=== PATIENT | female | born 1985 | race Caucasian/White ===

== ENCOUNTER 2019-06-06 16:14 | Emergency (ER) | payer BC ==
[2019-06-06] MEDS ORDERED: TETANUS & DIPHTHERIA TOX,ADULT 0.5 ML VIAL ONE (16:50)
--- NOTE | 2019-06-06 17:09 | ER ---
Nurse's Notes [facility] Name: Esha Oakley Age: 34 yrs Sex: Female : 1985 Arrival Date: 06/06/2019 Time: 16:15 Bed 27 Private MD: Diagnosis: Cellulitis of right upper limb Presentation: 06/06 16:25 Presenting complaint: Patient states: right elbow injury after falling on it Thursday, sv c/o pain and swelling. Transition of care: patient was not received from another setting of care. Onset of symptoms was June 04, 2019. Risk Assessment: Do you want to hurt yourself or someone else? Patient reports no desire to harm self or others. Care prior to arrival: None. 16:25 Method Of Arrival: Ambulatory sv 16:25 Acuity: EM 3 sv 16:59 Initial Sepsis Screen: Does the patient meet any 2 criteria? No. Patient's initial rv sepsis screen is negative. Does the patient have a suspected source of infection? No. Patient's initial sepsis screen is negative. Triage Assessment: 17:00 Injury Description: elbow hit something. rv Historical: - Allergies: 16:25 No Known Allergies; sv - PMHx: 16:25 None; sv - PSHx: 16:25 None; sv - Immunization history:: Flu vaccine is up to date. - Social history:: Smoking status: Patient uses tobacco products, smokes one-half pack cigarettes per day, Patient/guardian denies using alcohol, street drugs, The patient lives with family. - Ebola Screening: : No symptoms or risks identified at this time. - Family history:: not pertinent. Screenin:57 Abuse screen: Denies threats or abuse. Denies injuries from another. Nutritional rv screening: No deficits noted. Tuberculosis screening: No symptoms or risk factors identified. Fall Risk None identified. Assessment: 16:56 General: Appears in no apparent distress. comfortable, Behavior is calm, cooperative. rv Pain: Complains of pain in right elbow. Neuro: Level of Consciousness is awake, alert, obeys commands, Oriented to person, place, time, situation. Derm: Wound noted right elbow Wound is abrasion. Musculoskeletal: Swelling present in right elbow. Vital Signs: 16:26 BP 140 / 97; Pulse 88; Resp 16; Temp 99; Pulse Ox 97% ; Weight 58.97 kg; Height 5 ft. 3 sv in. (160.02 cm); Pain 5/10; 17:26 BP 127 / 88; Pulse 81; Resp 18; Pulse Ox 98% on R/A; rv 16:26 Body Mass Index 23.03 (58.97 kg, 160.02 cm) sv ED Course: 16:15 Patient arrived in ED. as 16:25 Triage completed. sv 16:26 Arm band placed on. sv 16:41 Nilson Ni MD is Attending Physician. ma 16:42 Nikolas Arnett, MARCELLUS is Primary Nurse. rv 16:58 Patient has correct armband on for positive identification. Pulse ox on. rv 16:58 No provider procedures requiring assistance completed. Patient did not have IV access rv during this emergency room visit. Wound care: to abrasion, located on right elbow ice pack applied. Patient tolerated well. 17:29 Elbow Right 3 View XRAY In Process Unspecified. 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 Exp: rv 11/18/2020. Lot #: [id number]. } Route: IM; Site: left deltoid; 17:28 Follow up: Response: No adverse reaction rv Outcome: 17:08 Discharge ordered by . anahi 17:26 Discharged to home ambulatory. rv 17:26 Condition: good 17:26 Discharge instructions given to patient, Instructed on discharge instructions, follow up and referral plans. medication usage, Demonstrated understanding of instructions, follow-up care, medications, wound care, Prescriptions given X 2. 18:02 Discharge ordered by . anahi 18:05 Patient left the ED. rv Signatures: Dispatcher [employer] EDMS Selina Lima, RN RN Fiorella Rodriges as Nilson Ni MD MD ma2 Vicente, Ronaldo, MARCELLUS RN rv Corrections: (The following items were deleted from the chart) 16:26 16:26 BP 140 / 97; Pulse 88bpm; Resp 16bpm; Pulse Ox 97%; Temp 99F; 58.97 kg; Height 5 sv ft. 3 in.; BMI: 23.0; Pain 0/10; sv
--- NOTE | 2019-06-06 17:09 | EDPHYS ---
Physician Documentation [facility] Name: Esha Oakley Age: 34 yrs Sex: Female : 1985 Arrival Date: 06/06/2019 Time: 16:15 Bed 27 Private MD: ED Physician Nilson Ni HPI: 06/06 17:06 This 34 yrs old Female presents to ER via Ambulatory with complaints of Elbow ma2 Injury. 17:06 The patient or guardian complains of an abrasion. Onset: The symptoms/episode ma2 began/occurred suddenly, 2 day(s) ago. Associated signs and symptoms: Pertinent positives: erythema, Pertinent negatives: decreased range of motion, numbness, swelling, tingling, warmth. Severity of symptoms: At their worst the symptoms were moderate, in the emergency department the symptoms are unchanged. The patient has not experienced similar symptoms in the past. Historical: - Allergies: 16:25 No Known Allergies; sv - PMHx: 16:25 None; sv - PSHx: 16:25 None; sv - Immunization history:: Flu vaccine is up to date. - Social history:: Smoking status: Patient uses tobacco products, smokes one-half pack cigarettes per day, Patient/guardian denies using alcohol, street drugs, The patient lives with family. - Ebola Screening: : No symptoms or risks identified at this time. - Family history:: not pertinent. ROS: 17:06 All other systems are negative. ma2 17:09 Neck: Negative for injury, pain, and swelling. ma2 Exam: 17:06 Constitutional: This is a well developed, well nourished patient who is awake, alert, ma2 and in no acute distress. Chest/axilla: Normal chest wall appearance and motion. Nontender with no deformity. No lesions are appreciated. Cardiovascular: Regular rate and rhythm with a normal S1 and S2. No gallops, murmurs, or rubs. Normal PMI, no JVD. No pulse deficits. Respiratory: Lungs have equal breath sounds bilaterally, clear to auscultation and percussion. No rales, rhonchi or wheezes noted. No increased work of breathing, no retractions or nasal flaring. Abdomen/GI: Soft, non-tender, with normal bowel sounds. No distension or tympany. No guarding or rebound. No evidence of tenderness throughout. Skin: Warm, dry with normal turgor. Normal color with no rashes, no lesions, and no evidence of cellulitis. MS/ Extremity: able to range all joints, hwever has abrasion with mild induration around, at right elbow, joint with no effusion, Pulses equal, no cyanosis. Neurovascular intact. Full, normal range of motion. Neuro: Awake and alert, GCS 15, oriented to person, place, time, and situation. Cranial nerves II-XII grossly intact. Motor strength 5/5 in all extremities. Sensory grossly intact. Cerebellar exam normal. Normal gait. Vital Signs: 16:26 BP 140 / 97; Pulse 88; Resp 16; Temp 99; Pulse Ox 97% ; Weight 58.97 kg; Height 5 ft. 3 sv in. (160.02 cm); Pain 5/10; 17:26 BP 127 / 88; Pulse 81; Resp 18; Pulse Ox 98% on R/A; rv 16:26 Body Mass Index 23.03 (58.97 kg, 160.02 cm) sv MDM: 16:41 Patient medically screened. ma2 17:06 Differential diagnosis: closed fracture, contusion, abrasion, tendonitis. Data ma2 reviewed: vital signs, nurses notes. Counseling: I had a detailed discussion with the patient and/or guardian regarding: the historical points, exam findings, and any diagnostic results supporting the discharge/admit diagnosis, the presence of at least one elevated blood pressure reading (>120/80) during this emergency department visit, the need for outpatient follow up. 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 Exp: rv 11/18/2020. Lot #: [id number]. } Route: IM; Site: left deltoid; 17:28 Follow up: Response: No adverse reaction rv Disposition: 06/06/19 18:02 Discharged to Home. Impression: Cellulitis of right upper limb. - Condition is Stable. - Discharge Instructions: Cellulitis, Adult. - Medication Reconciliation Form, Thank You Letter, Antibiotic Education, Prescription Opioid Use form. - Follow up: Private Physician; When: Tomorrow; Reason: Continuance of care. Signatures: Dispatcher [employer] Selina Baez RN RN Nilson Ni MD MD ma2 Nikolas Arnett RN RN rv Corrections: (The following items were deleted from the chart) 17:16 17:08 06/06/2019 17:08 Discharged to Home. Impression: Cellulitis and acute ma2 lymphangitis of other parts of limb. Condition is Stable. Forms are Medication Reconciliation Form, Thank You Letter, Antibiotic Education, Prescription Opioid Use. Follow up: Private Physician; When: Tomorrow; Reason: Continuance of care. ma2 18:05 18:02 06/06/2019 18:02 Discharged to Home. Impression: Cellulitis of right upper limb. rv Condition is Stable. Prescriptions for Tylenol-Codeine #3 300-30 mg Oral Tablet - take 2 tablet by ORAL route every 6 hours As needed; 30 tablet, Bactrim DS 800-160 mg Oral Tablet - take 1 tablet by ORAL route every 12 hours for 5 days; 10 tablet. and Forms are Medication Reconciliation Form, Thank You Letter, Antibiotic Education, Prescription Opioid Use. Follow up: Private Physician; When: Tomorrow; Reason: Continuance of care. ma2
--- NOTE | 2019-06-06 17:52 | RAD REPORT ---
EXAM DESCRIPTION: RAD - Elbow Right 3 View - 06/06/2019 5:27 pm CLINICAL HISTORY: Persistent elbow pain following fall COMPARISON: None. FINDINGS: No fracture is identified and no elevated posterior fat pad. There is no dislocation or pe riosteal reaction noted. No foreign body or other soft tissue abnormality. No other significant findi ng. IMPRESSION: Negative right elbow examination.
[2019-06-06 19:42] VITALS: TEMP 99
[2019-06-06 19:43] VITALS: BP 127/88; O2SAT 98
== END 2019-06-06 18:05 | disposition home or self-care (01) ==
LOC: ER 16:14
DX: L03.113 Cellulitis of right upper limb (principal); F17.210 Nicotine dependence, cigarettes, uncomplicated; Z23 Encounter for immunization
CPT/HCPCS: 90471; 90714; 99284

== ENCOUNTER → 2019-07-27 | Day surgery (SDC) | payer BC ==
[~2019-07-27] MED LIST: CEFAZOLIN/SWI 1gm 0 GM/0 ML SYR ONE; NA CHLORIDE 0.9% 250 ML ONE; Ringers Lactate 0 ML IV ONE; SCOPOLAMINE HYDROBROMIDE PATCH TD ONE
--- NOTE | 2019-07-27 12:13 | RAD REPORT ---
EXAM DESCRIPTION: US - Breast Core BX w/US Guidance - 07/27/2019 10:51 am CLINICAL HISTORY: N64.59 COMPARISON: Breast ultrasound March 12, 2018, mammogram February 10, 2018. TECHNIQUE: The patient presents for ultrasound-guided biopsy of a previously detailed 12 millimeter right breast mass 12 o'clock position abutting the chest wall. The ultrasound-guided core biopsy procedure, risks and alternatives were discussed with the patient i n detail. After answering all questions, both oral and written consent were obtained. Time out proced ure was performed. The patient had no contraindicated allergy or medication history. Patient took 81 milligram aspirin earlier in the day. Preliminary imaging identified the 12 mm mass. The anterior breast was prepped and draped in the usua l sterile fashion. From a lateral inferior approach, skin and deeper tissues were anesthetized with 1 % lidocaine. Under direct sonographic visualization a 14 gauge vacuum assisted core biopsy needle was advanced and placed at the upper lateral margin of the mass. The mass abutted and slightly flatten t he chest wall musculature limiting access to the mid and inferior portions of the mass for biopsy. Th ere were a total of four core biopsies obtained under direct sonographic guidance. The mass did appea r to have distortion in contour supporting transit of the biopsy needle through the upper or anterior portion of the mass. At the conclusion of the procedure a localization clip was placed under sonographic guidance at the l ateral margin of the mass. Post biopsy imaging showed no hematoma and mild bleeding within the breast soft tissues. This is not unexpected given the aspirin therapy. Hemostasis was obtained at the skin site with a sterile bandage placed. A cold pack was placed as well to control bleeding and bruising. Post procedure care and precaution instructions were given to the patient. IMPRESSION: 1. Ultrasound-guided core biopsy was performed of the 12 mm mass located in the 12 o'donny ck right breast abutting the chest wall. All obtained biopsy specimens were given to pathology for hi stology/cytology assessment. 2. Post biopsy localization clip was placed under ultrasound guidance.
--- OUTSIDE RECORDS SUMMARY | 2019-08-24 16:35 | XMS REPORT ---
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 Assessment Chronic pain syndrome G89.4 Active Problem Tobacco use disorder F17.200 Active Problem Insomnia, unspecified type G47.00 Active Problem Mixed hyperlipidemia E78.2 Active Assessment Depression with anxiety F41.8 Active Problem Chronic pain syndrome G89.4 Active Problem Depression with anxiety F41.8 Active Medications Medication Code Code Instructions Start End Status Dosage System Date Date Eszopiclone [facility] 58774878712 1 MG Orally Mar 23, Active 1 tablet Once a day 2018 immediately before bedtime Cymbalta [facility] 59446960765 60 MG Orally Active 1 capsule Twice a day Valtrex [facility] 25833385169 500 MG Orally Active 1 tablet Once a day Belsomra [facility] 53464140630 20 MG Orally Inactive 1 tablet at Once a day bedtime as needed Results No Known Results Summary Purpose [employer] Submission
--- OUTSIDE RECORDS SUMMARY | 2019-08-24 16:35 | XMS REPORT ---
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 Problem Insomnia, unspecified type G47.00 Active Problem Chronic pain syndrome G89.4 Active Problem Depression with anxiety F41.8 Active Assessment 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 Assessment 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 Assessment Encounter for tobacco use cessation Z71.6 Active counseling Assessment Chronic pain syndrome G89.4 Active Assessment Adult BMI 25.0-25.9 kg/sq m Z68.25 Active Assessment Tobacco use disorder F17.200 Active Medications Medication Code Code Instructions Start End Status Dosage System Date Date Eszopiclone ND 89308591641 1 MG Orally Inactive 1 tablet Once a day immediately before bedtime Valacyclovir HCl ND 83702872585 500 MG Orally May Active take 1 tablet Once a day , by mouth 2019 every day Cymbalta ND 45161997630 60 MG Orally Active 1 capsule Once a day Clobetasol ND 43381635466 0.05 % Jun 22Jun Active 1 application Propionate Externally 2019 18, Once a day 2019 Amitriptyline ND 21530762421 25 MG Orally Jun 22, Active 1 tablet at HCl Once a day 2019 bedtime Duloxetine HCl ND 64740563607 60 MG Active TAKE 1 CAPSULE BY MOUTH TWICE A DAY Valtrex ND 11088705941 500 MG Orally Active 1 tablet Once a day Results No Known Results Summary Purpose [employer] Submission
--- OUTSIDE RECORDS SUMMARY | 2019-08-24 16:35 | XMS REPORT ---
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 Problem Mixed hyperlipidemia E78.2 Active Problem Mild intermittent asthma without J45.20 Active complication Problem Depression with anxiety F41.8 Active Problem Insomnia, unspecified type G47.00 Active Problem Tobacco use disorder F17.200 Active Problem Chronic pain syndrome G89.4 Active Assessment Encounter for tobacco use cessation Z71.6 Active counseling Assessment Adult BMI 25.0-25.9 kg/sq m Z68.25 Active Assessment Chronic pain syndrome G89.4 Active Assessment Tobacco use disorder F17.200 Active Assessment 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 Assessment Mixed hyperlipidemia E78.2 Active Assessment 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 Assessment Mild intermittent asthma without J45.20 Active complication Medications Medication Code Code Instructions Start End Status Dosage System Date Date ProAir HFA [facility] 09377216118 108 (90 Base) August Active 2 puffs as MCG/ACT 2019 needed Inhalation every 6 hrs PRN COugh, Wheezing or shortness of breath Valacyclovir HCl [facility] 56915668056 500 MG Active TAKE 1 TABLET BY MOUTH EVERY DAY Symbicort [facility] 83987135360 80-4.5 MCG/ACT AugustAug 09, Active 2 puffs Inhalation 2019 Twice a day Amitriptyline HCl [facility] 66713650074 25 MG Orally Active 1 tablet Once a day at bedtime Cymbalta [facility] 25414552982 60 MG Orally Active 1 capsule Once a day Valacyclovir HCl [facility] 25118678955 500 MG Orally Active take 1 Once a day tablet by mouth every day Duloxetine HCl [facility] 94541393293 60 MG Active TAKE 1 CAPSULE BY MOUTH TWICE A DAY ProAir RespiClick [facility] 72945762625 108 (90 Base) Active 1 puff as MCG/ACT needed Inhalation every 4 hrs Results No Known Results Summary Purpose eClinicalWorks Submission
--- OUTSIDE RECORDS SUMMARY | 2019-08-24 16:35 | XMS REPORT ---
:1985 Author Organization [facility] Address [address] [place] [address] Dr. Soni [address] [place] [id number] Care Team Providers Name Role Phone Cristal Amado Agudelo Unavailable Unavailable Problems This patient has no known problems. Allergies, Adverse Reactions, Alerts This patient has no known allergies or adverse reactions. Medications This patient has no known medications. Encounters Start End Encounter Admission Attending Care Care Encounter Date/Time Date/Time Type Type Clinicians Facility Department ID 2018-03-22 2018-03-22 Outpatient JASON Bee [id number] 14:12:00 14:12:00 Amado 2017-12-16 2017-12-[address] [facility] [id number] 00:00:00 00:00:00 2017-08-31 2017-08-31 Outpatient JASON Bee [id number] 15:50:00 15:50:00 Am[place] 2017-03-10 2017-03-10 Outpatient JASON Bee [id number] 15:29:00 15:29:00 Amado
--- OUTSIDE RECORDS SUMMARY | 2019-08-24 16:35 | XMS REPORT ---
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
--- OUTSIDE RECORDS SUMMARY | 2019-08-24 16:35 | XMS REPORT ---
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
== END | disposition home or self-care (01) ==
LOC: DS 10:00
PROVIDERS: ATTEND Specialist
DX: N63.10 Unspecified lump in the right breast, unspecified quadrant (principal)
CPT/HCPCS: 19083; 88305; J0690; J7120

== ENCOUNTER 2020-10-11 14:59 | Emergency (ER) | payer OTHER ==
[2020-10-11] MEDS ORDERED: MAGNESIUM SULFATE 1 gm IVPB 1 GM/100 ML BAG IV ONE (16:26)
[2020-10-11] MEDS ORDERED: METHYLPREDNISOLONE 125 MG INJ ONE (16:27)
[2020-10-11] MEDS ORDERED: ALBUTEROL 2.5 MG/3 ML NEB SOL ONE ×2 (16:29→18:16)
[2020-10-11] MEDS ORDERED: IPRATROPIUM BROM 0.5MG/2.5ML ONE (16:29)
--- NOTE | 2020-10-11 17:09 | RAD REPORT ---
EXAM DESCRIPTION: RAD - Chest Single View - 10/11/2020 4:33 pm CLINICAL HISTORY: DYSPNEA COMPARISON: None TECHNIQUE: AP portable chest image was obtained 10/11/2020 4:33 pm . FINDINGS: Lungs are clear. Heart and vasculature are normal. No measurable pleural effusion and no p neumothorax. No acute bony abnormality seen. No acute aortic findings suspected. IMPRESSION: No acute cardiopulmonary process.
--- NOTE | 2020-10-11 18:00 | EDPHYS ---
Physician Documentation [facility] Name: Esha Oakley Age: 35 yrs Sex: Female : 1985 Arrival Date: 10/11/2020 Time: 15:02 Bed 8 Private MD: ED Physician London Shannon HPI: 10/11 18:11 This 35 yrs old Female presents to ER via Ambulatory with complaints of kb Shortness Of Breath. 18:11 The patient presents to the emergency department with wheezing, Current therapy: kb albuterol inhaler. Onset: The symptoms/episode began/occurred 4 day(s) ago. Modifying factors: The symptoms are alleviated by nothing, the symptoms are aggravated by nothing. Associated signs and symptoms: The patient has no apparent associated signs or symptoms. Severity of symptoms: At their worst the symptoms were moderate in the emergency department the symptoms are unchanged. The patient has experienced similar episodes in the past, a few times. The patient has not recently seen a physician. Pt reports she cleaned with bleach on Thursday and has had shortness of breath and wheezing since then. Reports HX of asthma. States this happened before when she was cleaning with bleach. 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 - Social history:: Smoking status: Patient reports the use of cigarette tobacco products, "3 cigarettes a day", Patient uses alcohol, occasionally. ROS: 18:10 Constitutional: Negative for fever, chills, and weight loss, Cardiovascular: Negative kb for chest pain, palpitations, and edema, Abdomen/GI: Negative for abdominal pain, nausea, vomiting, diarrhea, and constipation, MS/Extremity: Negative for injury and deformity, Skin: Negative for injury, rash, and discoloration, Neuro: Negative for headache, weakness, numbness, tingling, and seizure. 18:10 Respiratory: Positive for shortness of breath, wheezing. Exam: 18:10 Constitutional: This is a well developed, well nourished patient who is awake, alert, kb and in no acute distress. Head/Face: Normocephalic, atraumatic. Cardiovascular: Regular rate and rhythm with a normal S1 and S2. No gallops, murmurs, or rubs. No pulse deficits. Abdomen/GI: Soft, non-tender. No distention Skin: Warm, dry with normal turgor. Normal color. MS/ Extremity: Pulses equal, no cyanosis. Neurovascular intact. Full, normal range of motion. Neuro: Awake and alert, GCS 15, oriented to person, place, time, and situation. Moves all extremities. Normal gait. 18:10 Respiratory: mild respiratory distress is noted, Respirations: labored breathing, is not present, Breath sounds: wheezing: inspiratory expiratory that is severe, is heard diffusely. Vital Signs: 15:04 BP 134 / 95; Pulse 86; Resp 20; Temp 98.1(TE); Pulse Ox 99% on R/A; Weight 58.97 kg tw2 (R); Height 5 ft. 3 in. (160.02 cm) (R); 17:30 BP 129 / 86; Pulse 89; Resp 17; Pulse Ox 99% on R/A; hb 15:04 Body Mass Index 23.03 (58.97 kg, 160.02 cm) tw2 15:04 NAD tw2 MDM: 15:53 Patient medically screened. kb 17:59 Data reviewed: vital signs, nurses notes. Data interpreted: Pulse oximetry: on room air kb is 99 %. Interpretation: normal. Counseling: I had a detailed discussion with the patient and/or guardian regarding: the historical points, exam findings, and any diagnostic results supporting the discharge/admit diagnosis, radiology results, the need for outpatient follow up, a family practitioner, to return to the emergency department if symptoms worsen or persist or if there are any questions or concerns that arise at home. Response to treatment: the patient's symptoms have markedly improved after treatment. 10/11 15:55 Order name: Chest Single View XRAY; Complete Time: 17:16 kb 10/11 16:00 Order name: IV Start; Complete Time: 16:35 kb Administered Medications: 16:28 Drug: DuoNeb (albuterol 2.5 mg, ipratropium 0.5 mg) (3:1) (2.5 mg - 0.5 mg) 3 ml Route: hb Nebulizer; 16:38 Follow up: Response: No adverse reaction sv 16:29 Drug: Magnesium Sulfate 1 grams Route: IVPB; Infused Over: 1 hrs; Site: right hb antecubital; 18:00 Follow up: Response: No adverse reaction; IV Status: Completed infusion; IV Intake: sv 100ml 16:29 Drug: SOLU-Medrol (methylPrednisoLONE) 125 mg Route: IVP; Site: right antecubital; 16:38 Follow up: Response: No adverse reaction sv 18:01 Drug: Albuterol 2.5 mg Route: Inhalation; sv Disposition: 10/12 08:02 Co-signature as Attending Physician, London Shannon MD I agree with the assessment and kdr plan of care. Disposition: 10/11/20 18:00 Discharged to Home. Impression: Unspecified asthma with (acute) exacerbation. - Condition is Stable. - Discharge Instructions: Asthma, Adult, [id number]. - Prescriptions for Medrol (Otto) 4 mg Oral Tablets, Dose Pack - take 1 tablet by ORAL route as directed - follow package instructions; 1 packet. - Medication Reconciliation Form, Thank You Letter, Antibiotic Education, Prescription Opioid Use form. - Follow up: Private Physician; When: 2 - 3 days; Reason: Recheck today's complaints, Continuance of care, Re-evaluation by your physician. Follow up: Emergency Department; When: As needed; Reason: Worsening of condition. Signatures: Dispatcher [employer] Nita Desai FNP-C FNP-Ckb Verde, Stephanie RN London Gilbert MD MD [facility] Yessenia Munoz RN RN ss Sheryl Desai, MARCELLUS RN Bibi Larson RN RN tw2 Corrections: (The following items were deleted from the chart) 10/11 18:22 18:00 10/11/2020 18:00 Discharged to Home. Impression: Unspecified asthma with (acute) ss exacerbation. Condition is Stable. Forms are Medication Reconciliation Form, Thank You Letter, Antibiotic Education, Prescription Opioid Use. Follow up: Private Physician; When: 2 - 3 days; Reason: Recheck today's complaints, Continuance of care, Re-evaluation by your physician. Follow up: Emergency Department; When: As needed; Reason: Worsening of condition. kb
--- NOTE | 2020-10-11 18:00 | ER ---
Nurse's Notes [facility] Name: Esha Oakley Age: 35 yrs Sex: Female : 1985 Arrival Date: 10/11/2020 Time: 15:02 Bed 8 Private MD: Diagnosis: Unspecified asthma with (acute) exacerbation Presentation: 10/11 15:35 Chief complaint: Patient states: 2 days ago i cleaned with bleach and i have dogs, and tw2 dog hairs and i am allergic to dog hairs but the next morning i was having trouble breathing and i thought it was allergies, then today i am wheezing and cant catch my breath and i feel real tight and my rescue inhaler is not working. Coronavirus screen: shortness of breath, Client presents with at least one sign or symptom that may indicate coronavirus-19. Standard/surgical mask placed on the client. Provider contacted for isolation considerations. Ebola Screen: Patient denies travel to an Ebola-affected area in the 21 days before illness onset. Initial Sepsis Screen: Does the patient meet any 2 criteria? No. Patient's initial sepsis screen is negative. Does the patient have a suspected source of infection? No. Patient's initial sepsis screen is negative. Risk Assessment: Do you want to hurt yourself or someone else? Patient reports no desire to harm self or others. Onset of symptoms was October 11, 2020. 15:35 Method Of Arrival: Ambulatory tw2 15:35 Acuity: EM 3 tw2 Triage Assessment: 15:40 General: Appears in no apparent distress. slender, well groomed, Behavior is calm, tw2 cooperative, appropriate for age. Pain: Denies pain. Respiratory: Reports shortness of breath at rest on exertion Airway is patent audible wheezing noted in triage Onset: The symptoms/episode began/occurred 2 days now, the patient has moderate shortness of breath. 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 - Social history:: Smoking status: Patient reports the use of cigarette tobacco products, "3 cigarettes a day", Patient uses alcohol, occasionally. Screenin:20 Abuse screen: Denies threats or abuse. Denies injuries from another. Nutritional sv screening: No deficits noted. Tuberculosis screening: No symptoms or risk factors identified. Fall Risk None identified. Assessment: 16:15 General: Appears in no apparent distress. Behavior is calm, cooperative. Pain: Denies hb pain. Neuro: Level of Consciousness is awake, alert, obeys commands, Oriented to person, place, time, situation. Cardiovascular: Patient's skin is warm and dry. Rhythm is regular. Respiratory: Reports shortness of breath on exertion Respiratory effort is even, unlabored, Respiratory pattern is regular, symmetrical. GI: No signs and/or symptoms were reported involving the gastrointestinal system. : No signs and/or symptoms were reported regarding the genitourinary system. EENT: No signs and/or symptoms were reported regarding the EENT system. Derm: Skin is pink, warm \\T\\ dry. Musculoskeletal: No signs and/or symptoms reported regarding the musculoskeletal system. 17:00 Reassessment: Patient appears in no apparent distress at this time. Patient and/or hb family updated on plan of care and expected duration. Pain level reassessed. Patient is alert, oriented x 3, equal unlabored respirations, skin warm/dry/pink. 18:00 Reassessment: Patient appears in no apparent distress at this time. Patient and/or sv family updated on plan of care and expected duration. Pain level reassessed. Patient is alert, oriented x 3, equal unlabored respirations, skin warm/dry/pink. Vital Signs: 15:04 BP 134 / 95; Pulse 86; Resp 20; Temp 98.1(TE); Pulse Ox 99% on R/A; Weight 58.97 kg tw2 (R); Height 5 ft. 3 in. (160.02 cm) (R); 17:30 BP 129 / 86; Pulse 89; Resp 17; Pulse Ox 99% on R/A; hb 15:04 Body Mass Index 23.03 (58.97 kg, 160.02 cm) tw2 15:04 NAD tw2 ED Course: 15:02 Patient arrived in ED. ds1 15:35 Arm band placed on. tw2 15:37 Triage completed. tw2 15:53 Nita Ko FNP-C is [facility]. kb 15:53 London Shannon MD is Attending Physician. kb 16:15 Inserted saline lock: 20 gauge in right antecubital area, using aseptic technique. sv 16:17 Selina Lima RN is Primary Nurse. sv 16:20 Patient has correct armband on for positive identification. Bed in low position. Call sv light in reach. 16:31 Chest Single View XRAY In Process Unspecified. EDMS 18:22 No provider procedures requiring assistance completed. IV discontinued, intact, ss bleeding controlled, No redness/swelling at site. Pressure dressing applied. Administered Medications: 16:28 Drug: DuoNeb (albuterol 2.5 mg, ipratropium 0.5 mg) (3:1) (2.5 mg - 0.5 mg) 3 ml Route: hb Nebulizer; 16:38 Follow up: Response: No adverse reaction sv 16:29 Drug: Magnesium Sulfate 1 grams Route: IVPB; Infused Over: 1 hrs; Site: right hb antecubital; 18:00 Follow up: Response: No adverse reaction; IV Status: Completed infusion; IV Intake: sv 100ml 16:29 Drug: SOLU-Medrol (methylPrednisoLONE) 125 mg Route: IVP; Site: right antecubital; hb 16:38 Follow up: Response: No adverse reaction sv 18:01 Drug: Albuterol 2.5 mg Route: Inhalation; sv Intake: 18:00 IV: 100ml; Total: 100ml. sv Outcome: 18:00 Discharge ordered by . kb 18:22 Discharged to home ambulatory. ss 18:22 Condition: improved 18:22 Discharge instructions given to patient, Instructed on discharge instructions, follow up and referral plans. medication usage, Demonstrated understanding of instructions, follow-up care, medications, Prescriptions given X 1. 18:22 Patient left the ED. ss Signatures: Dispatcher [employer] EDMS Nita Ko FNP-C FNP-Selina Mendes RN RN Costa Gabby ds1 Yessenia Munoz RN RN ss Sheryl Desai RN RN Bibi Larson RN RN tw2 Corrections: (The following items were deleted from the chart) 15:41 15:04 Pulse 86bpm; Pulse Ox 99% RA; NAD; tw2 tw2 18:57 18:00 Reassessment: Patient appears in no apparent distress at this time. Patient sv and/or family updated on plan of care and expected duration. Pain level reassessed. Patient is alert, oriented x 3, equal unlabored respirations, skin warm/dry/pink. sv
[2020-10-11 18:36] VITALS: TEMP 98.1; O2SAT 99
[2020-10-11 18:38] VITALS: BP 129/86
== END 2020-10-11 18:22 | disposition home or self-care (01) ==
LOC: ER 14:59
DX: J45.901 Unspecified asthma with (acute) exacerbation (principal); F17.210 Nicotine dependence, cigarettes, uncomplicated; F41.8 Other specified anxiety disorders; Z88.1 Allergy status to other antibiotic agents
CPT/HCPCS: 96365; 71045; 96375; 99284; 96366; J3475; J2930